=== PATIENT | male | born 1955 | race Hispanic/Latino ===

== ENCOUNTER 2016-09-20 13:35 | Emergency (ER) | payer MEDICAID ==
--- NOTE | 2016-09-20 15:01 | Emergency Department Report ---
HPI - General Chief Complaint: Psych Time Seen by Provider: 09/20/16 14:31 - HPI HPI: Room 17 The patient is a 61-year-old male presenting with a chief complaint suicidal ideation and rash. Patient states for 1 month she has had a bilateral rash has been pruritic. The patient states she does not know what causes rash. Patient denies any history of fever. The patient was reportedly a resident at [facility] was sent on a 1013 documents "appears to be unable to care for his/ her own physical health and safety as to create an imminently life endangering crisis based on his psychosis" and "presents an imminently life endangering crisis to sell because he/she is unable to care for his/her own health and safety for example: Resistant to medical and psychiatric care, delusional, hallucinations." The patient does admit to suicidal ideation for "a while" but states he does not act. The patient denies auditory or visual hallucinations Location: Mental state, bilateral upper extremities Duration: [see above] Quality: Pruritic, suicidal Severity: Severe Modifying factors: [see above] Context: [see above] Mode of transportation: [not driving] ED Past Medical Hx - Past Medical History Hx Hypertension: Yes Hx Psychiatric Treatment: Yes (BiPolar) - Surgical History Past Surgical History?: Yes Additional Surgical History: Pacemaker - Family History Family history: no significant - Social History Smoking Status: Former Smoker (none 10 years) Substance Use Type: None - Medications Home Medications: Home Medications Medication Instructions Recorded Confirmed Last Taken Type Unobtainable 09/20/16 09/20/16 Unknown History ED Review of Systems ROS: Stated complaint: RASH ON ARM Other details as noted in HPI Comment: All other systems reviewed and negative Constitutional: denies: chills, fever Eyes: denies: eye pain, eye discharge, vision change ENT: denies: ear pain, throat pain Respiratory: denies: cough, shortness of breath, wheezing Cardiovascular: denies: chest pain, palpitations Endocrine: no symptoms reported Gastrointestinal: denies: abdominal pain, nausea, diarrhea Genitourinary: denies: urgency, dysuria Musculoskeletal: denies: back pain, joint swelling, arthralgia Skin: rash Neurological: denies: headache, weakness, paresthesias Psychiatric: denies: anxiety, depression Hematological/Lymphatic: denies: easy bleeding, easy bruising Physical Exam - Physical Exam Vital Signs: Vital Signs 09/20/16 09/20/16 13:58 14:04 Temperature 98.0 F Pulse Rate 80 Respiratory 16 16 Rate Blood Pressure 145/78 Blood Pressure 145/78 [Left] O2 Sat by Pulse 98 Oximetry Physical Exam: GENERAL: The patient is well-developed well-nourished male lying on stretcher not appearing to be in acute distress. [] HEENT: Normocephalic. Atraumatic. Extraocular motions are intact. Patient has moist mucous membranes. NECK: Supple. Trachea midline CHEST/LUNGS: There is no respiratory distress noted. HEART/CARDIOVASCULAR: Regular. There is no tachycardia. ABDOMEN: Abdomen is soft, nontender. Patient has normal bowel sounds. There is no abdominal distention. SKIN: There is diffuse rash over bilateral upper extremities with areas of denuded skin apparently from scratching. Rash may be consistent with scabies. There are no interdigital web lesions seen NEURO: The patient is awake, alert, and oriented. The patient is cooperative. The patient has normal speech MUSCULOSKELETAL: There is no evidence of acute injury. ED Course Vital Signs 09/20/16 09/20/16 13:58 14:04 Temperature 98.0 F Pulse Rate 80 Respiratory 16 16 Rate Blood Pressure 145/78 Blood Pressure 145/78 [Left] O2 Sat by Pulse 98 Oximetry ED Medical Decision Making - Lab Data Result diagrams: 09/20/16 15:21 09/20/16 15:21 Laboratory Tests 09/20/16 09/20/16 09/20/16 15:21 15:21 15:21 WBC 7.1 RBC 5.48 H Hgb 11.5 L Hct 35.3 L MCV 64 L MCH 21 L MCHC 32 RDW 16.2 H Plt Count 204 Lymph % (Auto) 15.9 [place] % (Auto) 7.0 Eos % (Auto) 0.9 Baso % (Auto) 0.7 Lymph # 1.1 L [place] # 0.5 Eos # 0.1 Baso # 0.0 Add Manual Diff Complete Total Counted 100 Seg Neutrophils % 75.6 H Seg Neuts % (Manual) 83.0 H Band Neutrophils % 0 Lymphocytes % (Manual) 13.0 L Reactive Lymphs % (Man) 0 Monocytes % (Manual) 4.0 Eosinophils % (Manual) 0 Basophils % (Manual) 0 Metamyelocytes % 0 Myelocytes % 0 Promyelocytes % 0 Blast Cells % 0 Nucleated RBC % Not Reportable Seg Neutrophils # 5.3 Seg Neutrophils # Man 5.9 Band Neutrophils # 0.0 Lymphocytes # (Manual) 0.9 L Abs React Lymphs (Man) 0.0 Monocytes # (Manual) 0.3 Eosinophils # (Manual) 0.0 Basophils # (Manual) 0.0 Metamyelocytes # 0.0 Myelocytes # 0.0 Promyelocytes # 0.0 Blast Cells # 0.0 WBC Morphology Not Reportable Hypersegmented Neuts Not Reportable Hyposegmented Neuts Not Reportable Hypogranular Neuts Not Reportable Smudge Cells Not Reportable Toxic Granulation Not Reportable Toxic Vacuolation Not Reportable Dohle Bodies Not Reportable Pelger-Huet Anomaly Not Reportable Kirk Rods Not Reportable Platelet Estimate Consistent w auto Clumped Platelets Not Reportable Plt Clumps, EDTA Not Reportable Large Platelets Not Reportable Giant Platelets Not Reportable Platelet Satelliting Not Reportable Plt Morphology Comment Not Reportable RBC Morphology Not Reportable Dimorphic RBCs Not Reportable Polychromasia Not Reportable Hypochromasia 2+ Poikilocytosis 1+ Anisocytosis Not Reportable Microcytosis 1+ Macrocytosis Not Reportable Spherocytes Not Reportable Pappenheimer Bodies Not Reportable Sickle Cells Not Reportable Target Cells Not Reportable Tear Drop Cells Not Reportable Ovalocytes Not Reportable Helmet Cells Not Reportable [place] Bodies Not Reportable [place] Rings Not Reportable [place] Cells Not Reportable Bite Cells Not Reportable Crenated Cell Not Reportable Elliptocytes Not Reportable Acanthocytes (Spur) Not Reportable Rouleaux Not Reportable Hemoglobin C Crystals Not Reportable Schistocytes Not Reportable Malaria parasites Not Reportable [place] Bodies Not Reportable Hem Pathologist Commnt No Sodium 139 Potassium 4.5 Chloride 104.0 Carbon Dioxide 23 Anion Gap 17 BUN 17 Creatinine 0.7 L Estimated GFR > 60 BUN/Creatinine Ratio 24.28 Glucose 103 H Calcium 8.9 Salicylates Acetaminophen Plasma/Serum Alcohol < 0.01 09/20/16 09/20/16 15:21 15:21 WBC RBC Hgb Hct MCV MCH MCHC RDW Plt Count Lymph % (Auto) [place] % (Auto) Eos % (Auto) Baso % (Auto) Lymph # [place] # Eos # Baso # Add Manual Diff Total Counted Seg Neutrophils % Seg Neuts % (Manual) Band Neutrophils % Lymphocytes % (Manual) Reactive Lymphs % (Man) Monocytes % (Manual) Eosinophils % (Manual) Basophils % (Manual) Metamyelocytes % Myelocytes % Promyelocytes % Blast Cells % Nucleated RBC % Seg Neutrophils # Seg Neutrophils # Man Band Neutrophils # Lymphocytes # (Manual) Abs React Lymphs (Man) Monocytes # (Manual) Eosinophils # (Manual) Basophils # (Manual) Metamyelocytes # Myelocytes # Promyelocytes # Blast Cells # WBC Morphology Hypersegmented Neuts Hyposegmented Neuts Hypogranular Neuts Smudge Cells Toxic Granulation Toxic Vacuolation Dohle Bodies Pelger-Huet Anomaly Kirk Rods Platelet Estimate Clumped Platelets Plt Clumps, EDTA Large Platelets Giant Platelets Platelet Satelliting Plt Morphology Comment RBC Morphology Dimorphic RBCs Polychromasia Hypochromasia Poikilocytosis Anisocytosis Microcytosis Macrocytosis Spherocytes Pappenheimer Bodies Sickle Cells Target Cells Tear Drop Cells Ovalocytes Helmet Cells [place] Bodies [place] Cells Bite Cells Crenated Cell Elliptocytes Acanthocytes (Spur) Rouleaux Hemoglobin C Crystals Schistocytes Malaria parasites [place] Bodies Hem Pathologist Commnt Sodium Potassium Chloride Carbon Dioxide Anion Gap BUN Creatinine Estimated GFR BUN/Creatinine Ratio Glucose Calcium Salicylates < 0.3 L Acetaminophen < 15.0 Plasma/Serum Alcohol - Differential Diagnosis scabies, suicidal ideation Critical care attestation.: If time is entered above; I have spent that time in minutes in the direct care of this critically ill patient, excluding procedure time. ED Disposition Clinical Impression: Suicidal ideation, Scabies Disposition: DC/TX PSY HOSP/PSY UNIT Is pt being admited?: No Does the pt Need Aspirin: No Condition: Stable Referrals: PRIMARY CARE, [Primary Care Provider] - 3-5 Days Time of Disposition: 18:27 (awaiting acceptance)
[2016-09-20] MEDS ORDERED: ATIVAN IM PRN (15:08)
[2016-09-20] MEDS ORDERED: HALDOL IM PRN (15:08)
[2016-09-20] MEDS ORDERED: BENADRYL IM PRN (15:08)
[2016-09-20 15:39] LABS: Eosinophils % (Auto) 0.9 % (0.0-4.3)
[2016-09-20 15:43] LABS: Basophils % (Auto) 0.7 % (0.0-1.8); Hemoglobin 11.5 gm/dl (11.8-15.2); White Blood Count 7.1 K/mm3 (4.5-11.0)
[2016-09-20 15:48] LABS: Hematocrit 35.3 % (35.5-45.6); Mean Corpuscular HGB Conc 32 % (32-34); Platelet Count 204 K/mm3 (140-440); Red Blood Count 5.48 M/mm3 (3.65-5.03); Red Cell Distribution Width 16.2 % (13.2-15.2)
[2016-09-20 15:49] LABS: Mean Corpuscular Hemoglobin 21 pg (28-32); Mean Corpuscular Volume 64 fl (84-94)
[2016-09-20 15:57] LABS: Anion Gap 17 mmol/L; BUN/Creatinine Ratio 24.28; Blood Urea Nitrogen 17 mg/dL (9-20); Calcium 8.9 mg/dL (8.4-10.2); Carbon Dioxide 23 mmol/L (22-30); Glucose 103 mg/dL (75-100); Potassium 4.5 mmol/L (3.6-5.0); Sodium 139 mmol/L (137-145)
[2016-09-20 16:25] LABS: Basophils % (Manual) 0 % (0.0-1.8); Blastocytes % (Manual) 0 %; Eosinophils % (Manual) 0 % (0.0-4.3)
[2016-09-20 16:26] LABS: Hypochromasia 2+; Microcytosis 1+
[2016-09-20 16:27] LABS: Diff Status Complete; Platelet Estimate Consistent w Auto; Poikilocytosis 1+
[2016-09-20] MEDS ORDERED: ACTICIN TP ONE (16:52)
[2016-09-21 00:38] LABS: Urine Drugs of Abuse Note Disclamer
[2016-09-21 01:17] LABS: Bilirubin,Urine NEG (Negative); Blood,Urine NEG (Negative); Ketones,Urine TR mg/dL (Negative); Leukocyte Esterase,Urine NEG (Negative); Mucus,Urine 3+ /HPF; Nitrite,Urine NEG (Negative); Protein,Urine <15 mg/dL mg/dL (Negative)
[2016-09-21 11:58] VITALS: BP 153/93
== END 2016-09-21 13:17 ==
LOC: ED 13:35
DX: R45.851 Suicidal ideations (principal); B86 Scabies; I10 Essential (primary) hypertension; F31.9 Bipolar disorder, unspecified; Z87.891 Personal history of nicotine dependence
CPT/HCPCS: 36415; 80048; 80307; 81001; 85007; 85025; 93005; 93010; 99285; G0480; 80320